=== PATIENT | male | born 1985 | race Caucasian/White ===

== ENCOUNTER → 2022-01-11 11:16 | Outpatient (CLI) | payer OTHER, SELFPAY ==
--- NOTE | 2022-01-11 11:21 | XR_ITS ---
FINAL REPORT CLINICAL HISTORY: SOA FINDINGS: 2 views of the chest were obtained . The heart is normal in size. The mediastinum is within normal limits. The lungs are clear. There is no pneumothorax. Osseous structures are unremarkable. IMPRESSION: No acute cardiopulmonary process. Reviewed, Interpreted and Dictated by Jacobo Garland III, MD Transcribed by Meenu Carcamo Authenticated by Jacobo Garland III, MD on 01/11/2022 12:29:15 PM [facility]
[2022-01-11 12:10] LABS: Basophils # 0.3 K/mm3 (0-0.2); Eosinophils # 0.3 K/mm3 (0.0-0.4); Eosinophils % 4.5 % (0.1-12.0); Hematocrit 51.2 % (42.0-52.0); Hemoglobin 16.6 g/dL (14.1-18.0); Lymphocytes # 1.4 K/mm3 (0.7-4.5); Lymphocytes % 19.9 % (10-50); Mean Corpuscular HGB Conc 32.4 g/dL (31.8-35.4); Mean Corpuscular Hemoglobin 29.6 pg (27.0-31.2); Mean Corpuscular Volume 91.6 fl (80-94); Monocytes # 0.6 K/mm3 (0.1-1.0); Monocytes % 8.1 % (1.7-9.3); Neutrophils # 4.4 K/mm3 (1.8-7.8); Neutrophils % 63.5 % (37.0-80.0); Platelet Count 275 K/mm3 (142-424); Red Blood Count 5.59 M/mm3 (4.60-6.20); Red Cell Distribution Width 13.1 % (11.5-17.5); White Blood Count 6.9 K/mm3 (4.8-10.8)
[2022-01-11 12:49] LABS: Alanine Aminotransferase 38 U/L (12-78); Anion Gap 14.3 mEq/L (5-15); Aspartate Amino Transferase 30 U/L (17-59); Bilirubin,Total 0.4 mg/dl (0.2-1.3); Blood Urea Nitrogen 13 mg/dl (9-20); Calcium 9.6 mg/dl (8.4-10.2); Carbon Dioxide 30 mmol/L (22.0-30.0); Chloride 99 mmol/L (98-107); Chol/HDL Ratio 4.8 (1-3.5); Cholesterol 188 mg/dl (140-200); Estimated Glomerular Filt Rate 75 ml/min (>60); GFR (African American) 91 ML/MIN (>60); Globulin 2.5 g/dL (1.3-3.2); Glucose 103 mg/dl (74-100); HDL Cholesterol 39 mg/dl (40-60); Potassium 4.3 mmoL/L (3.5-5.1); Sodium 139 mmol/L (136-145); Total Protein,Serum 7.5 g/dl (6.3-8.2); Triglycerides 169 mg/dl (30-150); VLDL Cholesterol 34 mg/dL (0-40)
[2022-01-11 12:58] LABS: Alkaline Phosphatase < 20 U/L (38-126)
[2022-01-11 13:00] LABS: Direct LDL Cholesterol 106.07 mg/dL (100-129)
[2022-01-11 13:05] LABS: 25-OH Vitamin D, Total 33.9 ng/mL (30-100)
[2022-01-11 13:07] LABS: T4 (Thyroxine) 10.7 ug/dl (5.53-11.0)
[2022-01-11 13:20] LABS: Thyroid Stimulating Hormone 2.33 uIU/mL (0.465-4.68)
== END ==
PROVIDERS: PCP Emergency Medicine; Visit Provider Emergency Medicine
DX: J45.909 Unspecified asthma, uncomplicated (principal); E78.5 Hyperlipidemia, unspecified; I10 Essential (primary) hypertension; E55.9 Vitamin D deficiency, unspecified; Z79.899 Other long term (current) drug therapy
CPT/HCPCS: 36415; 71046; 80053; 80061; 82306; 84436; 84443; 85025

== ENCOUNTER → 2023-05-09 16:00 | Outpatient (CLI) | payer BC, SELFPAY ==
[2023-05-09 18:30] LABS: Basophils # 0.1 K/mm3 (0-0.2); Basophils % 0.6 % (0.1-2.0); Eosinophils # 0.6 K/mm3 (0.0-0.4); Eosinophils % 5.7 % (0.1-12.0); Hematocrit 48.9 % (42.0-52.0); Lymphocytes # 2.5 K/mm3 (0.7-4.5); Lymphocytes % 23.3 % (10-50); Mean Corpuscular HGB Conc 32.8 g/dL (31.8-35.4); Mean Corpuscular Hemoglobin 29.1 pg (27.0-31.2); Mean Corpuscular Volume 88.7 fl (80-94); Mean Platelet Volume 8.8 fl (7.4-10.4); Monocytes # 1.1 K/mm3 (0.1-1.0); Monocytes % 10.3 % (1.7-9.3); Neutrophils # 6.4 K/mm3 (1.8-7.8); Neutrophils % 60.1 % (37.0-80.0); Platelet Count 241 K/mm3 (142-424); Red Blood Count 5.52 M/mm3 (4.60-6.20); Red Cell Distribution Width 13.1 % (11.5-17.5); White Blood Count 10.7 K/mm3 (4.8-10.8)
[2023-05-09 18:52] LABS: Alanine Aminotransferase 25 U/L (12-78); Albumin Level 4.7 g/dl (3.5-5.0); Albumin/Globulin Ratio 1.7 (1.1-1.8); Alkaline Phosphatase 25 U/L (38-126); Anion Gap 16.4 mEq/L (5-15); Aspartate Amino Transferase 29 U/L (17-59); Bilirubin,Total 0.5 mg/dl (0.2-1.3); Blood Urea Nitrogen 18 mg/dl (9-20); Calcium 9.7 mg/dl (8.4-10.2); Carbon Dioxide 27 mmol/L (22.0-30.0); Chloride 102 mmol/L (98-107); Chol/HDL Ratio 5.6 (1-3.5); Cholesterol 203 mg/dl (140-200); Estimated Glomerular Filt Rate 62 ml/min (>60); GFR (African American) 75 ML/MIN (>60); Globulin 2.8 g/dL (1.3-3.2); Glucose 79 mg/dl (74-100); HDL Cholesterol 36 mg/dl (40-60); Potassium 4.4 mmoL/L (3.5-5.1); Sodium 141 mmol/L (136-145); Total Protein,Serum 7.5 g/dl (6.3-8.2); Triglycerides 190 mg/dl (30-150); VLDL Cholesterol 38 mg/dL (0-40)
[2023-05-09 19:08] LABS: 25-OH Vitamin D, Total 26.9 ng/mL (30-100)
[2023-05-09 19:10] LABS: Free T4 (Free Thyroxine) 1.01 ng/dl (0.78-2.19)
[2023-05-09 19:22] LABS: Thyroid Stimulating Hormone 2.18 uIU/mL (0.465-4.68)
== END ==
PROVIDERS: PCP Emergency Medicine; Visit Provider Emergency Medicine
DX: I10 Essential (primary) hypertension (principal); E66.3 Overweight; Z79.899 Other long term (current) drug therapy
CPT/HCPCS: 80053; 80061; 82306; 84439; 84443; 85025

== ENCOUNTER 2023-06-03 21:05 | Emergency (ER) | payer BC, SELFPAY ==
[2023-06-03 21:06] VITALS: BP 144/93; PULSE 84; RESP 18; TEMP 36.6; O2SAT 98; BMI 27.3
[2023-06-03 21:10] VITALS: BP 144/93; PULSE 74; O2SAT 97
--- NOTE | 2023-06-03 21:29 | PC.NURSE ---
MD at bedside examining eye
[2023-06-03 21:30] VITALS: BP 133/91; PULSE 79; RESP 18; O2SAT 96
--- NOTE | 2023-06-03 21:53 | HMH.EDGENADL ---
Discharge Plan Disposition Patient Disposition: Home, Self-Care Condition: Good Prescriptions Prescriptions: New oxycodone 5 mg tablet 5 mg PO Q8H PRN (Reason: pain) Qty: 12 0RF naproxen 500 mg tablet 500 mg PO Q8H PRN (Reason: pain) Qty: 20 0RF No Action albuterol sulfate 90 mcg/actuation HFA aerosol inhaler 1 inh INHALATION QID Qty: 8.5 5RF atorvastatin 10 mg tablet See Rx Instructions .ROUTE .COMPLEX Qty: 90 0RF Dose Instruction: TAKE 1 TABLET BY MOUTH EVERY DAY AT BEDTIME Rx Instructions: TAKE 1 TABLET BY MOUTH EVERY DAY AT BEDTIME lisinopril 20 mg tablet See Rx Instructions .ROUTE .COMPLEX Qty: 90 0RF Dose Instruction: Take 1 tablet by mouth once daily Rx Instructions: Take 1 tablet by mouth once daily cholecalciferol (vitamin D3) 1,250 mcg (50,000 unit) capsule 1,250 mcg PO WEEKLY Qty: 5 0RF Referrals Follow up/Referrals: Faustino Fraser MD [Primary Care Provider] - See instructions Activity Restrictions/Add. Instructions Additional Instructions/Restrictions: You were evaluated in the emergency department today. Please waste picker your prescriptions at the pharmacy and take as needed for severe pain. Do not drive or operate heavy machinery while taking narcotic pain medication. I advise that you take some time off of work to let your eyes heal. Use the antibiotic ointment provided to you 4 times a day for 3 to 4 days or until your symptoms resolve. I recommend close outpatient follow-up with your eye doctor. I know that you are seeing them next week, however I would advise that you call them and see if you can get evaluated sooner. Return to the emergency department for any new or worsening symptoms. Clinical Impressions Clinical Impression: Photokeratitis of both eyes Stand Alone Forms Stand Alone Forms: Work/School Release Instructions Patient Instructions: DI for Eye Flash Burn Discharge ED Provider: Sary Campuzano General Adult HPI General Chief complaint: Eye Problems Stated complaint: eyes are watering, light sensitive Time Seen by Provider: 06/03/23 21:12 Mode of Arrival: Wheelchair Source of Information: Patient Limitations: No Limitations Description of Symptoms (Recalled from ER Triage Doc. by RN): Patient reports he was welding today and since then his eyes have become extremely watery and red, unsure if something has gotten in them. Patient states he is unable to hold his eyes open at this time. Upon assessment patients eyes are red and watery. 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 He states that he was welding today from 5 AM to 1:30 PM, and then he went to a neurologist appointment for nerve conduction study for carpal tunnel syndrome. When he got home around 5:00 PM, he noted that his eyes started watering. Since then, he has had pain in both eyes and has been unable to open them. They are watering profusely. He denies any known contact with any substances, potential chemical exposure to his eyes, or any other concerns. He states that he was wearing eye protection earlier while welding and has not had issues like this in the past. He wears contact lenses but has not had them in for several days at this point. Related Data Previous Rx's Medication Instructions Recorded albuterol sulfate 90 mcg/actuation 1 inh inhalation QID #8.5 grams 11/12/22 aerosol inhaler atorvastatin 10 mg tablet See Rx Instructions .Route 04/17/23 .COMPLEX #90 tabs lisinopril 20 mg tablet See Rx Instructions .Route 04/17/23 .COMPLEX #90 tabs cholecalciferol (vitamin D3) 1,250 1,250 mcg PO WEEKLY #5 caps 05/14/23 mcg (50,000 unit) capsule naproxen 500 mg tablet 500 mg PO Q8H PRN pain #20 tabs 06/03/23 oxycodone 5 mg tablet 5 mg PO Q8H PRN pain #12 tabs 06/03/23 Allergies Allergy/AdvReac Type S
[2023-06-03 22:00] VITALS: BP 138/95; PULSE 80; RESP 20; O2SAT 98
[2023-06-03 22:13] VITALS: BP 140/86; PULSE 88; RESP 20; TEMP 36.9; O2SAT 98
== END 2023-06-03 22:17 | disposition home or self-care (01) ==
PROVIDERS: Emergency Provider Emergency Medicine; PCP Emergency Medicine
DX: H16.133 Photokeratitis, bilateral (principal); H57.13 Ocular pain, bilateral; W89.0XXA Exposure to welding light (arc), initial encounter; F17.210 Nicotine dependence, cigarettes, uncomplicated
CPT/HCPCS: 99283

== ENCOUNTER → 2023-07-01 11:00 | Outpatient (CLI) | payer BC, SELFPAY ==
--- NOTE | 2023-07-01 | XR_ITS ---
FINAL REPORT CLINICAL HISTORY: Right wrist pain, carpal tunnel syndrome COMPARISON: None FINDINGS: RIGHT WRIST Three views demonstrate no acute fracture or dislocation. The visualized joint spaces are normally aligned. The soft tissues are unremarkable. IMPRESSION: No acute bony abnormality. Reviewed, Interpreted and Dictated by Naeem Fernandez MD Transcribed by Rula Taylor Authenticated and [facility]
== END ==
PROVIDERS: Visit Provider Orthopaedic Surgery
DX: G56.01 Carpal tunnel syndrome, right upper limb (principal)
CPT/HCPCS: 73110

== ENCOUNTER → 2023-10-06 15:52 | Outpatient (CLI) | payer BC, SELFPAY ==
--- NOTE | 2023-10-06 16:00 | ECG_ITS ---
APPROVED REPORT Exam: Resting ECG HR:84 bpm ECG Measurements Heart Rate 84 AXES NE 142 P 62 QRSd 102 QRS -18 QT 321 T 49 QTc 361 Conclusion SINUS RHYTHM NORMAL ECG UNCONFIRMED REPORT Electronically signed by : Wilder Stacy MD 10/06/2023 17:34:10
--- NOTE | 2023-10-06 16:14 | XR_ITS ---
PROCEDURE INFORMATION: Exam: XR Chest Exam date and time: 10/06/2023 4:30 PM Age: 38 years old Clinical indication: Screening exam; Pre-operative exam; Other: Right wrist surgery; Additional info: Niccotine use. Pre-op for right wrist surgery TECHNIQUE: Imaging protocol: Radiologic exam of the chest. Views: 2 views. COMPARISON: CR XR CHEST 2V 01/11/2022 11:23 AM FINDINGS: Lungs: Unremarkable. No consolidation. Pleural spaces: Unremarkable. No pleural effusion. No pneumothorax. Heart/Mediastinum: Unremarkable. No cardiomegaly. Bones/joints: Unremarkable. IMPRESSION: No acute findings.
[2023-10-06 16:28] LABS: Basophils # 0.1 K/mm3 (0-0.2); Basophils % 0.8 % (0.1-2.0); Eosinophils # 0.5 K/mm3 (0.0-0.4); Eosinophils % 3.9 % (0.1-12.0); Hematocrit 47.1 % (42.0-52.0); Hemoglobin 15.8 g/dL (14.1-18.0); Lymphocytes # 2.5 K/mm3 (0.7-4.5); Lymphocytes % 19.8 % (10-50); Mean Corpuscular HGB Conc 33.6 g/dL (31.8-35.4); Mean Corpuscular Hemoglobin 30.7 pg (27.0-31.2); Mean Corpuscular Volume 91.4 fl (80-94); Mean Platelet Volume 7.9 fl (7.4-10.4); Neutrophils # 8.4 K/mm3 (1.8-7.8); Neutrophils % 67.5 % (37.0-80.0); Platelet Count 271 K/mm3 (142-424); Red Blood Count 5.15 M/mm3 (4.60-6.20); Red Cell Distribution Width 12.7 % (11.5-17.5); White Blood Count 12.5 K/mm3 (4.8-10.8)
[2023-10-06 18:11] LABS: Alanine Aminotransferase 15 U/L (12-78); Albumin Level 4.4 g/dl (3.5-5.0); Albumin/Globulin Ratio 1.6 (1.1-1.8); Alkaline Phosphatase 24 U/L (38-126); Anion Gap 13.5 mEq/L (5-15); Aspartate Amino Transferase 24 U/L (17-59); Bilirubin,Total 0.5 mg/dl (0.2-1.3); Blood Urea Nitrogen 18 mg/dl (9-20); Calcium 8.9 mg/dl (8.4-10.2); Carbon Dioxide 26 mmol/L (22.0-30.0); Chloride 99 mmol/L (98-107); Estimated Glomerular Filt Rate 67 ml/min (>60); GFR (African American) 82 ML/MIN (>60); Globulin 2.7 g/dL (1.3-3.2); Glucose 96 mg/dl (74-100); Potassium 4.5 mmoL/L (3.5-5.1); Sodium 134 mmol/L (136-145); Total Protein,Serum 7.1 g/dl (6.3-8.2)
== END ==
LOC: LAB 15:53
PROVIDERS: PCP Internal Medicine; Visit Provider Orthopaedic Surgery
DX: Z01.818 Encounter for other preprocedural examination (principal); G56.01 Carpal tunnel syndrome, right upper limb
CPT/HCPCS: 36415; 71046; 80053; 85025; 93005

== ENCOUNTER 2023-10-08 09:57 | Day surgery (SDC) | payer BC, SELFPAY ==
[2023-10-07 10:11] VITALS: BMI 27.9
[2023-10-08] VITALS (9 sets, daily range): BP systolic 112–133; BP diastolic 50–79; PULSE 79–97; RESP 12–18; TEMP 36.2–36.4; O2SAT 91–99
--- NOTE | 2023-10-08 10:43 | EXP.ANES.CKL ---
[facility] Disclaimer: The information contained in this section may have been updated after the patient was seen, as this information can be updated by other users. Medical History Hyperlipidemia Hypertension Surgical History No significant past surgical history Family History Other Family history of cancer Social History Smoking Status: Current every day smoker tobacco type: cigarettes alcohol intake: never substance use type: denies use current occupational status: employed Travel in the last 8 weeks: None [facility] Anesthesia Checklist Patient Identification Patient Identification: Arm Band, Family and Verbal (Name & ) Structural Data Admitted From: Home Planned Operative Procedure/s: RIGHT CT Release Consent for Planned Operative Procedure(s) Verified: Yes Verified Documents: Surgical Consent and History and Physical NPO Status Verified Time NPO: 16:30 Chart Verification Results Verified: CBC, BMP, ECG and Chest Xray Additional verifications Patient : No Anesthesia Reactions: No Hx Blood Transfusions: No Blood Transfusion Reaction: No Cardiovascular Assessment Heart Sounds: S1 & S2 Pulse Rhythm: Irregular Peripheral Edema: No Airway Assessment Mallampati Score:: Class II C-Spine Mobility Assessed: Yes (FROM) TMJ Mobility Assessed: Yes Dentition: Poor Dentition (Severely carried. Many missing teeth. Nothing loose per pt.) Neurological Assessment Level of Consciousness: Awake, Alert, Appropriate and Follows Commands Hx Seizures: No Numbness or tingling in extremities: Yes (RIGHT Hand) Anesthesia Plan Anesthesia Risk discussed: Yes Anesthesia Plan: Verified ASA Class: III Anesthesia Type: General
--- NOTE | 2023-10-08 12:09 | P.OP_ITS ---
Date of procedure: 10/08/23 Pre-op Diagnosis:: Right carpal tunnel syndrome Post-op Diagnosis:: Same Procedure performed:: Right endoscopic carpal tunnel release Surgeon:: Bartolo Simms DO [employer] PRO[employer] COORDINATOR:: Ector Franklin Anesthesia: GETA Estimated blood loss (mL): 0 Operative findings:: See dictation Operative note:: Patient did not have preoperatively. Right wrist marked with yes my initials. Transported operative suite. Placed upon the operating bed. General anesthesia ministered airway secured. Right upper extremity prepped and draped normal sterile fashion. Once prepped and draped final operative timeout performed to identify proper patient procedure and extremity. Everyone involved the case agreed. There is no counter indications to beginning. He did receive preoperative antibiotics. Marking pen was used to ayde the planned incision over the volar wrist crease Esmarch was used to exsanguinate the extremity pneumatic tourniquet inflated to 250 mmHg. Skin knife was used to incise the skin. Dissection with the scissors taken down. Retractors placed in the most proximal aspect transverse carpal ligament identified. The dilator from the endoscopic carpal tunnel release set was placed followed by the sled for the 4.0 mm camera on the right side. Camera was then placed within the carpal tunnel. Transverse carpal ligament was clearly seen superiorly within the camera view. A probe was used to probe the most distal aspect of the transverse carpal ligament rasp was used to remove the soft tissue and then the hook cutting knife was utilized to incise the transverse carpal ligament this was directly visualized. Copious irrigation wound performed. Skin closed with nylon stitches. Local anesthesia infiltrated the skin site. Sterile hand dressing placed. Patient waken anesthesia taken recovery in stable condition. Condition: stable Disposition: PACU Complications:: None apparent
--- NOTE | 2023-10-08 12:14 | P.PNANES_ITS ---
[facility] Anesthesia Record Part I Anesthesia Record I Intake, IV Amount: 1,200 Hydration: Adequate Estimated blood loss (mL): 0 Urine output (mL): 0 Blood Pressure: 133/78 SaO2: 93 Pulse Rate: 87 Airway Patency: Patent Respiratory Rate: 12 Temperature: 97.1 F Patient is:: Awake and Stable Stable to PACU at:: 12:11
--- NOTE | 2023-10-09 08:50 | P.PNANES_ITS ---
[facility] Anesthesia Record Part II Anesthesia Record Part II Discharge Time: 12:41 Destination: Surgical Day Care (OP Surgery) PACU nurse assessment reviewed?: Yes Patient Condition:: Good Anesthesia Complications:: None Swallowing reflex intact?: Yes Airway Patency: Patent Cyanosis?: No Blood Pressure: 112/72 SaO2: 93 Respiratory Rate: 18 Pulse Rate: 86 Temperature: 97.5 F Mental Status: Alert & Oriented Pain level:: 0 Nausea and/or vomitting:: None Intake, IV Amount: 0 Hydration: Adequate
[2023-10-09 08:52] VITALS: BP 112/72; PULSE 86; RESP 18; TEMP 36.4; O2SAT 93
== END 2023-10-08 13:20 | disposition home or self-care (01) ==
PROVIDERS: PCP Internal Medicine; Visit Provider Orthopaedic Surgery
PROC: (CPT 64721; principal; 2023-10-08 11:30)
DX: G56.01 Carpal tunnel syndrome, right upper limb (principal)
CPT/HCPCS: 29848; 96374; J2405